=== PATIENT | male | born 1990 | race Caucasian/White ===

== ENCOUNTER 2017-10-16 13:13 | Outpatient (CLI) | payer OTHER ==
--- NOTE | 2017-10-16 14:32 | XRAY Report ---
EXAM: CERVICAL SPINE RADIOGRAPHY EXAM DATE: 10/16/2017 02:07 PM. CLINICAL HISTORY: Neck pain. COMPARISONS: None. TECHNIQUE: 3 views. FINDINGS: Alignment: 0.2 cm anterolisthesis of C2 on C3. Alignment otherwise within normal limits. Bones: The cervical vertebral bodies and posterior elements are well visualized from the skull base t hrough C7-T1. No fractures or bone lesions. Disks: Normal. Disk heights are maintained. Facets: No degenerative disease. Soft Tissues: Normal. No prevertebral soft tissue swelling. The visualized lung apices are clear. IMPRESSION: 1. No evidence of acute fracture. 2. There is 0.1-0.2 cm anterolisthesis of C2 vertebral body on C3. This is probably within normal jewell its. Spinolaminar alignment is normal. If there is focal tenderness or neurologic deficit correspondi ng to the cervical spine, MRI could be used for further evaluation. 3. No evidence of significant degenerative disease. [facility] Referring Provider Line: [phone] SITE ID: [id number]
--- NOTE | 2017-10-16 14:47 | XRAY Report ---
EXAM: CHEST RADIOGRAPHY EXAM DATE: 10/16/2017 02:07 PM. CLINICAL HISTORY: NECK PAIN AND CHEST PAIN. COMPARISON: None. TECHNIQUE: 2 views. FINDINGS: Lungs/Pleura: No focal opacities evident. No pleural effusion. No pneumothorax. Normal volumes. Mediastinum: Heart and mediastinal contours are unremarkable. Other: None. IMPRESSION: No acute intrathoracic plain film abnormality. [facility] Referring Provider Line: [phone] SITE ID: [id number]
== END 2017-10-16 13:14 | disposition home or self-care (01) ==
LOC: DI 13:13
PROVIDERS: ATTEND Nurse Practitioner Family
DX: M54.2 Cervicalgia (principal); R07.89 Other chest pain
CPT/HCPCS: 71046; 72040

== ENCOUNTER 2020-07-29 12:30 | Outpatient (CLI) | payer OTHER | END 2020-07-29 12:31 | disposition home or self-care (01) | LOC: COV 12:30 | PROVIDERS: ATTEND Family Medicine | DX: R05 Cough (principal); Z20.828 Contact with and (suspected) exposure to other viral communicable diseases; R06.02 Shortness of breath; R09.81 Nasal congestion; J02.9 Acute pharyngitis, unspecified ==

== ENCOUNTER 2024-05-30 07:00 | Outpatient (CLI) | payer OTHER ==
--- NOTE | 2024-05-31 14:00 | XRAY Report ---
PROCEDURE: Hand 3+V RT INDICATIONS: RIGHT HAND PAIN TECHNIQUE: 3 views of the hand acquired. COMPARISON: None. FINDINGS: Bones: Mild chronic appearing deformity of the 5th metacarpal. No definite acute fracture line is se en. The remaining visualized osseous structures are intact. Soft tissues: No suspicious soft tissue calcifications. Mild soft tissue edema along the volar asp ect of the hand. IMPRESSION: Mild chronic deformity of the 5th metacarpal is likely related to a remote prior injury. No definite acute fracture is seen. Mild soft tissue edema is present. If there is continued clinical concern or persistent symptoms, additional imaging such as repeat radi ographs or advanced imaging (e.g. CT, MRI) may be helpful for further evaluation. Reviewed by: Aldair Hightower MD on 05/31/2024 1:59 PM PDT Approved by: Aldair Hightower MD on 05/31/2024 1:59 PM PDT Station ID: [id number]
== END 2024-05-30 23:59 | disposition home or self-care (01) ==
LOC: DI.S 07:00
PROVIDERS: ATTEND Registered Nurse
DX: M25.541 Pain in joints of right hand (principal); R60.0 Localized edema